=== PATIENT | female | born 1980 | race Caucasian/White ===

== ENCOUNTER 2018-04-02 06:34 | Outpatient (CLI) ==
[2014-10-07 23:43] VITALS: BMI 39.9
--- NOTE | 2018-04-02 11:36 | ECHO2D ---
Date of Exam: 04/02/18 Ordering Physician: DR. JONI CAMPUZANO Room #: OP Reason for Echo: EDEMA M-Mode Normal Adult Results LV Dimensions Normal Adult Results AoV Opening excursions >1.6 >1.6 LVEDD-base- 3.5-5.8 4.5 Ao root dimensions 2.0-3.7 3.0 LVESD-base- 3.1-4.6 L. Atrium dimensions 1.9-3.8 4.0 Post. Wall thickness 0.8-1.1 1.1 IV septum (thickness) 0.7-1.2 1.1 Post. Wall excursion 0.72-1.3 NORMAL Septal motion NORMAL Systolic motion R. Ventricular cavity 1.5-2.0 NORMAL LVEF 60% 55% Paradoxical septal wall motion NORMAL 2-D : 2-D M Mode Echocardiogram was performed using apical four chamber and left parasternal long and short axis views. Mitral, tricuspid and aortic valves appear to be normal. Contractility of the left ventricle seems to be normal, so is the cavity size. Left atrial cavity size and aortic root appear to be normal. There is no pericardial effusion. There is no thrombus noted in the left ventricular or left aortic cavity. No mitral valve prolapse noted. M-MODE: MV: NORMAL AV: NORMAL TV: NORMAL PV: CHAMBER SIZE: NORMAL WALL MOTION: NORMAL PERICARDIUM: NORMAL INTERPRETATION: 1. NORMAL 2 "D" "M" MODE ECHO MTDD
== END 2018-04-02 06:35 | disposition home or self-care (01) ==
LOC: CAR 06:34
PROVIDERS: ATTEND Family Medicine
DX: R60.9 Edema, unspecified (principal)

== ENCOUNTER 2018-11-19 19:10 | Outpatient (CLI) ==
[2018-09-30 08:08] VITALS: BMI 40.8
--- NOTE | 2018-11-20 07:50 | DI ---
EXAM: Abdomen one view HISTORY: Stent placement COMPARISON: 10/28/2014 TECHNIQUE: Single view abdomen was performed. FINDINGS: There are no dilated loops of small bowel. There is air and stool throught the colon. The re are no abnormal calcifications. There are no acute abnormalities of the bones. There is a stent present in the region of the common bile duct. IMPRESSION: Stent in the region of the common bile duct.
== END 2018-11-19 19:11 | disposition home or self-care (01) ==
LOC: RAD 19:10
PROVIDERS: ATTEND Internal Medicine Gastroenterology
DX: Z96.89 Presence of other specified functional implants (principal); Z98.890 Other specified postprocedural states

== ENCOUNTER 2019-04-22 07:36 | Outpatient (CLI) ==
[2018-09-30 08:08] VITALS: BMI 40.8
--- NOTE | 2019-04-22 10:25 | MRI ---
EXAM: MRI abdomen with and without contrast, MRCP HISTORY: Right upper quadrant pain, biliary stent, vomiting COMPARISON: None TECHNIQUE: Multiplanar multisequence MRI abdomen performed with and without intravenous contrast. FINDINGS: Lung bases free of consolidation. Bone marrow signal normal. Signal of the bowel appears normal. Long right lobe of liver. Stable splenic cyst measuring 1.1 cm. Spleen normal in size. K idneys appear normal. Adrenals appear normal. Gallbladder appears normal. Pancreatic parenchyma ap pears normal. Aorta normal in caliber. No lymphadenopathy or ascites. No evidence for hepatic stea tosis. Mild intrahepatic biliary duct dilation. Mild dilation of the common bile duct measuring 8 m m appears mildly decreased. Small concave filling defect distal common bile duct is slightly less co nspicuous on current examination. Borderline dilation pancreatic duct measures 4 mm, slightly decrea sed. No pancreatic divisum. IMPRESSION: 1. Mild intra and extrahepatic biliary duct dilation with common bile duct measuring 8 mm, mildly im proved. No biliary stent is visible on MR. Small concave filling defect distal common bile duct is slightly less conspicuous from prior examination, could be due to ampullary hypertrophy or ampullary lesion or less likely choledocholithiasis. Recommend correlation with ERCP results. 2. Borderline dilation of the pancreatic duct measuring 4 mm, mildly improved. 3. Long right lobe of liver, may represent a Mary variant versus enlarged right hepatic lobe.
== END 2019-04-22 07:37 | disposition home or self-care (01) ==
LOC: RAD 07:36
PROVIDERS: ATTEND Physician Assistant
DX: R11.2 Nausea with vomiting, unspecified (principal); R10.11 Right upper quadrant pain; R07.89 Other chest pain; Z98.890 Other specified postprocedural states
CPT/HCPCS: 36415; 82565